=== PATIENT | male | born 1995 | race Caucasian/White ===

== ENCOUNTER 2020-11-07 10:23 | Inpatient (IN) | payer MEDICAID ==
[~2020-11-07] VITALS: Ht 172.7 cm; Wt 68.5 kg
--- NOTE | 2020-11-07 10:50 | NUR ---
pt rec'd to er c/o of seizure on 11/05/20 has not had etoh since then ua sent to lab dark brown cloudy labs drawn sent to lab AWAITING EVALUATION BY ER PROVIDER.
[2020-11-07 10:53] LABS: BASOPHILS % (AUTO) 0.7 % (0.0-2.0); EOSINOPHILS % (AUTO) 1.5 % (0.0-6.0); HEMATOCRIT 37 % (39-51); LYMPHOCYTES # (AUTO) 0.7 /CMM (0.8-4.8); LYMPHOCYTES % (AUTO) 16.9 % (20.0-44.0); MEAN CORPUSCULAR HGB CONC 35 g/dl (31.0-36.0); MEAN CORPUSCULAR VOLUME 107 fL (80-96); MONOCYTES # (AUTO) 0.5 /CMM (0.1-1.30); MONOCYTES % (AUTO) 12.6 % (2.0-12.0); NEUTROPHILS # (AUTO) 2.9 /CMM (1.8-8.9); NEUTROPHILS % (AUTO) 68.3 % (43.0-81.0); PLATELET COUNT (AUTO) 102 /CMM (150-450); RED BLOOD CELL COUNT(AUTO) 3.48 MIL/uL (4.5-6.0); WHITE BLOOD COUNT (AUTO) 4.2 K/uL (4.3-11.0)
[2020-11-07 10:54] LABS: BILIRUBIN,URINE LARGE (NEGATIVE); COLOR,URINE AMBER (YELLOW); LEUKOCYTE ESTERASE ,URINE Negative (NEGATIVE); NITRITE, URINE Positive (NEGATIVE); PROTEIN,URINE 100 mg/dl (NEGATIVE); UGLUCOSE 100 MG/DL mg/dL (NEGATIVE); UROBILINOGEN,URINE >=8.0 EU/dL (0.2)
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
[2020-11-07 11:01] LABS: CALCIUM, SERUM 8.3 mg/dL (8.5-10.1); CARBON DIOXIDE 27 mmol/L (21-32); CHLORIDE 97 mmol/L (98-107); GLUCOSE 82 mg/dL (74-106); SODIUM SERUM 137 mmol/L (136-145); UREA NITROGEN, BLOOD 9 mg/dL (7-18)
[2020-11-07 11:07] LABS: ALANINE AMINOTRANSFERASE 119 U/L (12-78); ALBUMIN 3.8 g/dL (3.4-5.0); ALCOHOL, BLOOD < 3 mg/dL (0-0); ALKALINE PHOSPHATASE 196 U/L (46-116); ASPARTATE AMINOTRANSFERASE 219 U/L (15-37); BILIRUBIN,DIRECT 2.3 mg/dL (0.0-0.2); BILIRUBIN,TOTAL 3.6 mg/dL (0.2-1.0); TOTAL PROTEIN, SERUM 7.4 g/dL (6.4-8.2)
[2020-11-07 11:12] LABS: BACTERIA,URINE 1+ /HPF (None Seen); SQUAMOUS EPITHELIAL CELL,UR Few /HPF (None Seen)
[2020-11-07 11:13] LABS: ACETAMINOPHEN < 2 ug/ml (10-30)
[2020-11-07] MEDS ORDERED: Thiamine 100 MG in IV D5W 50 ML IV SCH (11:30)
[2020-11-07] MEDS ORDERED: IV NS 0.9% 1,000 ML BAG IV ONE (11:30)
[2020-11-07] MEDS ORDERED: Folic acid 1 MG in IV D5W 50 ML IV ONE (11:30)
--- NOTE | 2020-11-07 11:40 | NUR ---
iv started 20g ivprt ac ns bolus
[2020-11-07] MEDS ORDERED: Thiamine 100 MG in IV D5W 50 ML IV ONE (11:58)
[2020-11-07] MEDS ORDERED: CHLORDIAZEPOXIDE HCL 25 MG CAPSULE PO ONE (12:00)
[2020-11-07] MEDS ORDERED: LORAZEPAM INJ 2 MG/ML VIAL IV ONE (12:00)
--- NOTE | 2020-11-07 12:00 | NUR ---
MOVE SHEET SUBMITTED AND CALLED FOR [facility] BED.
[2020-11-07] MEDS ORDERED: CHLORDIAZEPOXIDE HCL 25 MG CAPSULE ONE (12:04)
[2020-11-07] MEDS ORDERED: LORAZEPAM INJ 2 MG/ML VIAL ONE (12:18)
--- NOTE | 2020-11-07 12:24 | NUR ---
[facility] CALLED SYSTEMS TEST ENGINEER PAGED.
--- NOTE | 2020-11-07 12:28 | NUR ---
the copunt is correct but i did given this patient libruim 50 po
--- NOTE | 2020-11-07 12:47 | NUR ---
room assignment: 119-B
[2020-11-07 12:57] LABS: BAND % (MANUAL) 1 % (0.0-5.0); LYMPHOCYTES % (MANUAL) 16 % (16-48); MONOCYTES % (MANUAL) 12 % (0-11.0); NEUTROPHILS % (MANUAL) 71 (42-76)
[2020-11-07] MEDS ORDERED: PHARMACY ADD 1 AMP MVI TO IVF DAILY ONE BAG XX PRN (13:30)
[2020-11-07] MEDS ORDERED: Z GUARD REMEDY 2 OZ OINT TP PRN (13:30)
[2020-11-07] MEDS ORDERED: MAG HYDROX/AL HYDROX/SIMETH 30 ML UDC PO PRN (13:30)
[2020-11-07] MEDS ORDERED: ACETAMINOPHEN 325 MG TABLET PO PRN (13:30)
[2020-11-07] MEDS ORDERED: LORAZEPAM INJ 2 MG/ML VIAL IV PRN (13:30)
[2020-11-07] MEDS ORDERED: ZOLPIDEM TARTRATE 5 MG TABLET PO PRN (13:30)
[2020-11-07] MEDS ORDERED: ONDANSETRON HCL/PF 4 MG/2 ML VIAL IVP PRN (13:30)
[2020-11-07] MEDS ORDERED: HYDROCODONE/APAP 5/325MG TABLET PO PRN (13:30)
[2020-11-07] MEDS ORDERED: MAGNESIUM HYDROXIDE 30 ML UDC PO PRN (13:30)
--- NOTE | 2020-11-07 14:05 | NUR ---
REPORT GIVEN TO IJEOMA HESS OF DAVID
[2020-11-07] MEDS: IV NS 0.9% 1,000 ML IV SCH ×3 (14:30→23:30)
--- NOTE | 2020-11-07 14:30 | NUR ---
RN ADMITTING NOTES RECEIVED PT FROM ER, [facility]IA [facility], BUT UNSTABLE, ON ROOM AIR, SPO2 IS 97%, NST ON TELE-MONITOR 96'S V/S: BP 136/94 HR: 97 RR:18 TEMP: 99.2 IV LINE PRESENT R AC, INTACT, FLUSHED, CONNECTED TO IV FLUIDS NS 0.9 @ 100CC/HR, TOLERATIG WELL, SAFETY MEASURES IN PACE, CALL LIGHT IN REACH, BED IS LOCKED, LOWEST POSITION, BED ALARM IS ON, WILL CONT TO MONITOR CLOSELY
[2020-11-07] MEDS: CEFTRIAXONE 1 G in IV D5W 50 ML IV SCH (15:36)
[2020-11-07 16:00] VITALS: BP 132/93
[2020-11-07] MEDS: POTASSIUM CL. PREMIX PERIPHER. 50 ML IV SCH ×6 (16:17→22:55)
[2020-11-07] MEDS: MVI ADULT 10ML VIAL = 1AMP 10 ML in IV NS 0.9% 1,000 ML IV SCH (18:56)
--- NOTE | 2020-11-07 19:00 | NUR ---
RN NOTE RECEIVED PATIENT IN BED, ON HIGH AVERY'S, IN NO S/SX OF ACUTE DISTRESS AT THIS TIME. NO SOB NOTED. PATIENT'S BREATHING IS EVEN AND UNLABORED. SATURATION AT 100% ON ROOM AIR, SR ON THE MONITOR, HR IS 91. NOTED IV SITE AT RIGHT ANTECUBITAL 18 GAUGE, PATENT AND FLUSHING WELL, NO S/S OF INFECTION OR INFILTRATION WITH ONGOING K REPLACEMENT AT 50 ML/HR, AND MULTIVITAMINS IN NS 1L AT 100 ML/HR. PATIENT IS AMBULATORY WITH ASSIST, URINAL AT BEDSIDE. SEIZURE PRECAUTIONS MAINTAINED. SAFETY MEASURES IMPLEMENTED. PATIENT BED ALARM IS ON. HEAD OF BED ELEVATED. BED IS LOCKED, IN LOWEST POSITION AND SIDE RAILS UP. CALL LIGHT WITHIN REACH OF THE PATIENT. WILL CONTINUE TO MONITOR AND REASSESS FOR ANY CHANGES.
[2020-11-07 20:00] VITALS: BP 129/84
[2020-11-07] MEDS ORDERED: POTASSIUM CL. PREMIX PERIPHER. 50 ML ONE (22:38)
[2020-11-08] VITALS: BP 114/84
[2020-11-08] MEDS: MVI ADULT 10ML VIAL = 1AMP 10 ML in IV NS 0.9% 1,000 ML IV SCH (00:06)
--- NOTE | 2020-11-08 00:06 | NUR ---
RN NOTE PER [facility]AR PROTOCOL, ONE BAG OF NS WITH MVI PER DAY, RUN IN PLACE OF NS. CURRENT BAG OF NS WITH MVI STARTED AT 1856 BY AM SHIFT. WILL START NS ONCE NS WITH MVI CONSUMED. MINK SLICER MADE AWARE.
[2020-11-08 04:00] VITALS: BP 118/79
[2020-11-08 06:26] LABS: BASOPHILS % (AUTO) 0.7 % (0.0-2.0); EOSINOPHILS % (AUTO) 2.2 % (0.0-6.0); HEMATOCRIT 33 % (39-51); LYMPHOCYTES % (AUTO) 24.9 % (20.0-44.0); MEAN CORPUSCULAR HGB CONC 34 g/dl (31.0-36.0); MEAN CORPUSCULAR VOLUME 108 fL (80-96); MONOCYTES # (AUTO) 0.6 /CMM (0.1-1.30); MONOCYTES % (AUTO) 16.3 % (2.0-12.0); NEUTROPHILS # (AUTO) 2.2 /CMM (1.8-8.9); NEUTROPHILS % (AUTO) 55.9 % (43.0-81.0); PLATELET COUNT (AUTO) 83 /CMM (150-450); RED BLOOD CELL COUNT(AUTO) 3.06 MIL/uL (4.5-6.0); WHITE BLOOD COUNT (AUTO) 3.9 K/uL (4.3-11.0)
[2020-11-08 06:50] LABS: CALCIUM, SERUM 7.5 mg/dL (8.5-10.1); CREATININE 0.8 mg/dL (0.6-1.3); MAGNESIUM 1.3 mg/dL (1.8-2.4); PHOSPHORUS 2.4 mg/dL (2.5-4.9)
[2020-11-08 07:18] LABS: BAND % (MANUAL) 3 % (0.0-5.0); EOSINOPHILS % (MANUAL) 3 % (0-4); LYMPHOCYTES % (MANUAL) 31 % (16-48); MONOCYTES % (MANUAL) 14 % (0-11.0); NEUTROPHILS % (MANUAL) 49 (42-76)
[2020-11-08 08:00] VITALS: BP 104/67
--- NOTE | 2020-11-08 08:00 | NUR ---
ms rn note patient in bed , alert oriented x4 ,on ra no sob noted ,on tele monitor he 67 sr , rt ac hl intact and flushed well , on npo at this time on ivf as ordered ,bed in lowest and locked position , plan of care discussed with patient ,call light with in reach, will cont to monitor
[2020-11-08] MEDS: Magnesium 1GM/D5W 100ML PREMIX 100 ML IV SCH ×4 (08:43→11:53)
--- NOTE | 2020-11-08 08:51 | NUR ---
ms rn note seen by dr jose luis gee to d\c tele marlen to start regular diet
[2020-11-08] MEDS: IV NS 0.9% 1,000 ML IV SCH (09:45)
[2020-11-08] MEDS ORDERED: K PHOS NEUTRAL 250 MG TABLET PO ONE (11:00)
[2020-11-08] MEDS: MULTIVIT W/MINERALS 1 TAB TABLET PO SCH (11:06)
[2020-11-08] MEDS ORDERED: Thiamine 100 MG in IV D5W 50 ML IV SCH (12:00)
[2020-11-08] MEDS ORDERED: Folic acid 1 MG in IV D5W 50 ML IV SCH (12:00)
--- NOTE | 2020-11-08 12:30 | NUR ---
ms rn note patient in bed ,all needs attended having lunch not in distress
[2020-11-08] MEDS: CEFTRIAXONE 1 G in IV D5W 50 ML IV SCH (14:38)
[2020-11-08 16:00] VITALS: BP 118/72
--- NOTE | 2020-11-08 16:00 | NUR ---
ms rn note rounds made, cont on ivf ,all needs attended ,will cont to monitor
[2020-11-08] MEDS ORDERED: MVI ADULT 10ML VIAL = 1AMP 10 ML in IV NS 0.9% 1,000 ML IV PRN (18:00)
--- NOTE | 2020-11-08 18:17 | NUR ---
MS RN NOTE RESTING COMFORTABLY ,ON IVF ORDERED, ALL NEEDS ATTENDED, NO SOB NOTED,NO S\S SEIZURE , CALL LIGHT WITHIN REACH ,WILL CONT TO MONITOR
[2020-11-08 20:00] VITALS: BP 115/78
[2020-11-09] MEDS: IV NS 0.9% 1,000 ML IV SCH (01:39)
[2020-11-09 04:00] VITALS: BP 128/83
--- NOTE | 2020-11-09 06:35 | NUR ---
MS RN NOTES AWAKE & RESPONSIVE. NOT IN ANY DISTRESS. NO SOB NOTED. DENIES ANY PAIN OR DISCOMFORT AT THIS TIME. WITH IVF INFUSING WELL. MONITORED ACCORDINGLY. CALL LIGHT WITHIN REACH. BED IN LOWEST POSITION. SR UP X 2 FOR SAFETY. WILL ENDORSE TO NEXT SHIFT.
[2020-11-09 06:40] LABS: BASOPHILS % (AUTO) 0.8 % (0.0-2.0); EOSINOPHILS % (AUTO) 3.1 % (0.0-6.0); HEMATOCRIT 32 % (39-51); HEMOGLOBIN 11.1 g/dL (13.5-17.5); LYMPHOCYTES # (AUTO) 0.7 /CMM (0.8-4.8); MEAN CORPUSCULAR HGB CONC 35 g/dl (31.0-36.0); MEAN CORPUSCULAR VOLUME 106 fL (80-96); MONOCYTES # (AUTO) 0.4 /CMM (0.1-1.30); MONOCYTES % (AUTO) 14.5 % (2.0-12.0); NEUTROPHILS # (AUTO) 1.5 /CMM (1.8-8.9); NEUTROPHILS % (AUTO) 55.6 % (43.0-81.0); PLATELET COUNT (AUTO) 91 /CMM (150-450); RED BLOOD CELL COUNT(AUTO) 3.03 MIL/uL (4.5-6.0); WHITE BLOOD COUNT (AUTO) 2.7 K/uL (4.3-11.0)
[2020-11-09 07:02] LABS: CALCIUM, SERUM 7.6 mg/dL (8.5-10.1); CREATININE 0.7 mg/dL (0.6-1.3); MAGNESIUM 2.1 mg/dL (1.8-2.4); PHOSPHORUS 2.5 mg/dL (2.5-4.9); POTASSIUM 3.8 mmol/L (3.5-5.1)
--- NOTE | 2020-11-09 07:30 | NUR ---
MS RN AM NOTE RECEIVED PATIENT IN BED, ASLEEP, RESPONDS RIGHT AWAY TO NAME AN TOUCH, AOX 4, ON ROOM AIR, NO S/SX OF ACUTE DISTRESS AT THIS TIME. NO SOB NOTED. PATIENT'S BREATHING IS EVEN AND UNLABORED. SATURATION AT 100% ON ROOM AIR, RT AC G 18 IV SITE FLUSHES WELL, SITE CLEAR, REFUSED IVF, AMBULATORY, REGULAR DIET, SEIZURE PRECAUTIONS MAINTAINED. SAFETY MEASURES IMPLEMENTED. PATIENT BED ALARM IS ON. HEAD OF BED ELEVATED. BED IS LOCKED, IN LOWEST POSITION AND SIDE RAILS UP. CALL LIGHT WITHIN REACH OF THE PATIENT. POC DISCUSSED, VERBALIZED UNDERSTANDING. WILL CONTINUE TO MONITOR.
[2020-11-09 08:00] VITALS: BP 115/76
[2020-11-09] MEDS ORDERED: SULF1TAB48 PO (08:01)
[2020-11-09] MEDS: MULTIVIT W/MINERALS 1 TAB TABLET PO SCH (08:21)
[2020-11-09] MEDS ORDERED: FOLIC ACID 1 MG TABLET PO SCH (09:00)
[2020-11-09] MEDS ORDERED: THIAMINE HCL 100 MG TABLET PO SCH (09:00)
[2020-11-09] MEDS ORDERED: IV NS 0.9% 1,000 ML IV PRN (09:30)
--- NOTE | 2020-11-09 09:30 | NUR ---
RN NOTES DUE MEDS GIVEN
[2020-11-09] MEDS: CEFTRIAXONE 1 G in IV D5W 50 ML IV SCH (14:00)
--- NOTE | 2020-11-09 14:55 | NUR ---
BUSINESS TECHNOLOGY TEACHER NOTES PATIENT DISCHARGED TO HOME TODAY PER MD IN STABLE CONDITION. PROVIDED DC INSTRUCTIONS, HEALTH TEACHINGS AND MED RECON LIST. PATIENT TO FOLLOWUP WITH PCP IN 1-2 WEEKS AND WILL MAKE OWN APPOINTMENT. IV ACCESS TO RIGHT AC, CATH TIP COMPLETE, NO BLEEDING, DRESSING IN PLACE. ALL BELONGINGS CHECKED AND RETURNED. ALL PAPERS SIGNED. AMBULATED AND ACCOMPANIED BY PATRICK NAVARRO TO LOBBY AND WILL TAKE UBER TO GO HOME.
== END 2020-11-09 21:09 | disposition home or self-care (01) | DRG 53 ==
LOC: ER 10:28 → TELE-TD 12:59 → MEDSG1 11-08 08:11
PROVIDERS: ADMIT Family Medicine; ATTEND Family Medicine
DX: G40.509 Epileptic seizures related to external causes, not intractable, without status epilepticus (principal); E83.42 Hypomagnesemia; Y90.0 Blood alcohol level of less than 20 mg/100 ml; J45.909 Unspecified asthma, uncomplicated; F10.221 Alcohol dependence with intoxication delirium; F10.231 Alcohol dependence with withdrawal delirium; B37.49 Other urogenital candidiasis; D53.9 Nutritional anemia, unspecified; E80.6 Other disorders of bilirubin metabolism; E87.6 Hypokalemia; D72.819 Decreased white blood cell count, unspecified
CPT/HCPCS: 36415; 76700-TC; 80048-TC; 80061-TC; 80076-TC; 81001; 83735-TC; 84100-TC; 85025-TC; 87081-TC; 87086-TC; G0378; G0480; J0696; J2060; J3411; J3475; J3480; J3490; J7030; J7060